=== PATIENT | male | born 1975 | race Caucasian/White ===

== ENCOUNTER 2017-03-25 01:29 | Emergency (ER) | payer OTHER ==
[~2017-03-25] VITALS: Ht 180.3 cm; Wt 105.2 kg
[~2017-03-25 01:29] MED LIST: AMOX1TAB11 PO
[2017-03-25 01:35] VITALS: BP 121/85
[2017-03-25] MEDS ORDERED: CETI10TA22 PO (01:46)
[2017-03-25] MEDS ORDERED: lisinopril (01:47)
[2017-03-25] MEDS ORDERED: zoloft (01:47)
[2017-03-25] MEDS ORDERED: buspar (01:47)
--- NOTE | 2017-03-25 01:52 | PHYS DOC ---
General Chief Complaint: ANKLE PROBLEM Stated Complaint: RT ANKLE INJURY Time Seen by MD: 01:30 Source: patient Exam Limitations: no limitations Problems: History of Present Illness Initial Comments Patient is a 41-year-old male who comes to the ED complaining of right ankle pain. Patient states that yesterday he rolled it in an inversion mechanism. He has complained of lateral ankle pain. He says today there's been some swelling and worsening of the pain. He's tried [id number] medications however tonight the discomfort was keeping him awake. He has come to the emergency department requesting analgesia. He has history of right sided anterior talofibular ligament reconstruction in the past he denies numbness tingling weakness or radiating symptoms in the emergency department. Ankle pain described as moderate to severe, sharp and stabbing, worse with movement better with rest. No other injuries or complaints voiced. Onset: yesterday Severity: moderate Pain/Injury Location: right ankle Method of Injury: twisted Modifying Factors: worse with jarring, worse with movement, improves with rest Allergies: Coded Allergies: No Known Drug Allergies (Unverified , 03/25/17) Past Medical History Medical History: other (anxiety, depression, hypertension, chronic right ankle and shoulder pain, melanoma) Surgical History: tonsillectomy, other (vasectomy, right ankle, right shoulder , melanoma removal from back) Social History Smoker: cigarettes Alcohol: none Drugs: none Review of Systems Constitutional: denies chills, denies fever Respiratory: denies cough, denies shortness of breath Cardiovascular: denies chest pain, denies palpitations Gastrointestinal: denies nausea, denies vomiting Musculoskeletal: see HPI Psychiatric/Neurological: denies numbness, denies paresthesia Physical Exam General Appearance: no apparent distress HEENT: normal ENT inspection Neck: non-tender, supple Cardiovascular/Respiratory: normal peripheral pulses, no respiratory distress Back: no CVA tenderness, no vertebral tenderness Ankles: right ankle swelling (mild swelling laterally towards no bony tenderness there is no palpable deformity drawer test is negative. The extremity is neurovascularly intact range of motion normal) Feet: bilateral foot non-tender, bilateral foot normal inspection, bilateral foot normal range of motion, bilateral foot no evidence of injury Neurologic/Tendon: normal sensation, normal motor functions, normal tendon functions, responds to pain, no evidence tendon injury Psychiatric: alert, oriented x 3 Skin: normal color, warm/dry Orders, Labs, Meds Right ankle: Images reviewed by me no acute osseous abnormality. Departure Time of Disposition: 01:49 Disposition: 01 HOME, SELF-CARE Diagnosis: right ankle sprain Condition: GOOD Patient Instructions: Ankle Sprain, Acute, with Phase I Rehab-SportsMed, RICE - Routine Care for Injuries Additional Instructions: RICE, see handout. Activity as tolerated, avoid prolonged standing/walking for 48 hours to try to reduce swelling. OTC ibuprofen as needed. A Tylenol #3 start pack was dispensed in ED, take 1 every 6 hours with food as needed for pain. Rx: norco 5mg #5 Follow up with your doctor in 2-3 days for recheck. Return to ED with new or changing symptoms. HEATHER PULLIAM DO Mar 25, 2017 01:52
[2017-03-25] MEDS ORDERED: ACETAMINOPHEN/CODEINE 300/30MG 4TABLET STARTPACK. PO ONE ×2 (01:57→02:00)
--- NOTE | 2017-03-25 08:37 | RAD ---
Indication injury, pain. AP oblique and lateral views of the right ankle were obtained. Postoperative changes are noted. No acute bony finding is seen
== END 2017-03-25 02:00 | disposition home or self-care (01) ==
LOC: ER 01:29
DX: S93.401A Sprain of unspecified ligament of right ankle, initial encounter (principal); I10 Essential (primary) hypertension; G89.29 Other chronic pain; F17.210 Nicotine dependence, cigarettes, uncomplicated; X50.9XXA Other and unspecified overexertion or strenuous movements or postures, initial encounter; Y93.89 Activity, other specified; Y99.8 Other external cause status; Y92.89 Other specified places as the place of occurrence of the external cause
CPT/HCPCS: 73610; 99284